=== PATIENT | male | born 1965 | race Asian ===

== ENCOUNTER → 2017-02-21 | Outpatient (CLI) | payer BC ==
--- NOTE | 2017-02-21 08:07 | DIAGNOSTIC IMAGING REPORT ---
ABDOMEN COMPLETE (US) CLINICAL HISTORY: 51 years-old Male with ABDONINAL PAIN. Acute right upper quadrant abdominal pain TECHNIQUE: Multiple real time sonographic images of the abdomen were obtained assessing del cid-scale appearance. FINDINGS: PANCREAS: The pancreas is partially obscured by bowel gas. The visualized portions of the pancreas are normal without focal lesion or pancreatic duct dilatation. LIVER: The liver demonstrates a homogeneous parenchymal echotexture. There is no intrahepatic bile duct dilation, focal lesion, or contour nodularity. There is no ascites. GALLBLADDER: The gallbladder is fluid-filled without cholelithiasis, wall thickening, or pericholecystic fluid. Negative sonographic Jerez's sign. The common bile duct measures 0.5 cm. RIGHT KIDNEY: The right kidney measures 10.6 cm. The parenchymal echotexture and cortical thickness are normal. No nephrolithiasis or hydronephrosis. LEFT KIDNEY: The left kidney measures 10.0 cm. The parenchymal echotexture and cortical thickness are normal. No nephrolithiasis or hydronephrosis. SPLEEN: The spleen measures 8.0 cm and is normal in echotexture. No focal lesions are identified. VASCULATURE: The visualized aorta and inferior vena cava are sub-visualized although appear normal as seen. IMPRESSION: Unremarkable sonographic exam of the abdomen. The above report was generated using voice recognition software. It may contain grammatical, syntax or spelling errors. Electronically signed by: Cedric Santana M.D. 02/21/2017 8:06 AM Dictated Date/Time: 02/21/2017 8:03 AM
== END | disposition home or self-care (01) ==
LOC: C.ULTR 07:06
PROVIDERS: ATTEND Internal Medicine
DX: R10.11 Right upper quadrant pain (principal)

== ENCOUNTER → 2017-03-17 | Outpatient (CLI) | payer BC ==
--- NOTE | 2017-03-17 08:50 | DIAGNOSTIC IMAGING REPORT ---
KUB CLINICAL HISTORY: 51 years-old Male presenting with HEMATURIA. TECHNIQUE: Single supine view of the abdomen was obtained. COMPARISON: Ultrasound from 02/21/2017. FINDINGS: Nonobstructive bowel gas pattern. Moderate stool burden in the right colon. No gross pneumoperitoneum. Allowing for bowel gas and stool, no calcifications to suggest nephrolithiasis. Osseous structures normal. Lung bases clear. IMPRESSION: 1. No radiographic evidence of renal or ureteral calculi. 2. No bowel obstruction or free air. Electronically signed by: Pa Pendleton M.D. 03/17/2017 8:49 AM Dictated Date/Time: 03/17/2017 8:48 AM
== END | disposition home or self-care (01) ==
LOC: C.RAD 08:31
PROVIDERS: ATTEND Internal Medicine
DX: R31.9 Hematuria, unspecified (principal)

== ENCOUNTER → 2017-06-13 | Outpatient (CLI) | payer BC ==
--- NOTE | 2017-06-13 10:29 | DIAGNOSTIC IMAGING REPORT ---
CHEST 2 VIEWS ROUTINE HISTORY: 51 years-old Male ACUTE CHEST PAIN acute atypical chest pain COMPARISON: None available TECHNIQUE: PA and lateral views of the chest FINDINGS: Cardiomediastinal and hilar silhouettes are within normal limits. No pneumothorax, pleural effusion, focal airspace consolidation or overt pulmonary edema. The bones of the chest appear grossly intact. IMPRESSION: No acute process. The above report was generated using voice recognition software. It may contain grammatical, syntax or spelling errors. Electronically signed by: Cedric Santana M.D. 06/13/2017 10:28 AM Dictated Date/Time: 06/13/2017 10:26 AM
--- NOTE | 2017-06-13 10:35 | DIAGNOSTIC IMAGING REPORT ---
THYROID ULTRASOUND HISTORY: HYPOTHYROIDISM COMPARISON: None. FINDINGS: Right lobe: 5.2 x 1.8 x 1.5 cm. There are 2 tiny cysts with the largest measuring 3 mm. No solid nodules. Left lobe: 5.1 x 2.1 x 1.2 cm. There is a 4 mm cyst at the upper pole. No solid nodules. Isthmus: 2 mm in thickness. No nodules. IMPRESSION: A few tiny cysts/colliod nodules within the thyroid gland. No solid nodules identified. Electronically signed by: Dorian Archer M.D. 06/13/2017 10:34 AM Dictated Date/Time: 06/13/2017 10:32 AM
== END | disposition home or self-care (01) ==
LOC: C.ULTR 09:50
PROVIDERS: ATTEND Internal Medicine
DX: R07.9 Chest pain, unspecified (principal); E03.9 Hypothyroidism, unspecified; E04.2 Nontoxic multinodular goiter